=== PATIENT | male | born 1955 | race Caucasian/White ===

== ENCOUNTER 2018-08-08 16:27 | Inpatient (IN) ==
[2018-08-08] MEDS ORDERED: ONDANSETRON 4 MG/2 ML VIAL IV STA (17:12)
[2018-08-08] MEDS ORDERED: SODIUM CHLORIDE 0.9% 1,000 ML IV STA (17:12)
[2018-08-08] MEDS ORDERED: MORPHINE 4 MG/1 ML VIAL IV STA (17:12)
[2018-08-08] MEDS ORDERED: DILTIAZEM 50 MG/10 ML VIAL IV STA (17:22)
[2018-08-08] MEDS ORDERED: DILTIAZEM 25 MG/5 ML VIAL IV ONE (17:36)
[2018-08-08 17:42] LABS: Basophils % 0.3 % (0.0-0.8); Eosinophils # 0.1 10*3/uL (0.0-0.87); Eosinophils % 2.7 % (0.00-10.9); Hematocrit 39.9 VOL% (42.0-52.0); Hemoglobin 13.4 GM/DL (14.0-18.0); Immature Granulocytes % 0.3 %; Immature Granulocytes Absolute 0.01 #; Lymphocytes # 0.5 10*3/uL (1.4-4.0); Mean Corpuscular HGB Conc 33.6 GM/DL (32-36); Mean Corpuscular Hemoglobin 33 PG (27-34); Mean Corpuscular Volume 98.3 FL (87-102); Mean Platelet Volume 10.8 FL (9.6-12.0); Monocytes # 0.1 10*3/uL (0.11-0.8); Monocytes % 2.4 % (1.7-12.7); Neutrophils % 81.3 % (38.7-73.9); Platelet Count 223 T/CUMM (130-400); Red Blood Count 4.06 MC/CUMM (3.8-5.5); Red Cell Distribution Width 12.1 % (9.3-17.3); White Blood Count 3.7 T/CUMM (4-12)
[2018-08-08 18:02] LABS: Albumin 3.4 G/DL (3.4-5.0); Bilirubin,Total 0.9 MG/DL (0.2-1.0); Calcium 9.3 MG/DL (8.5-10.1); Osmolality,Calculated 271.4 MOS/KG (273-304); Total Protein 7.9 G/DL (6.4-8.3)
[2018-08-08 19:13] LABS: Apearance,Urine CLEAR (Clear); Bacteria,Urine Moderate /HPF (Few); Bilirubin,Urine Negative (Negative); Blood, Urine Negative (Negative); Glucose,Urine (UA) Negative (Negative); Ketones,Urine Negative (Negative); Nitrite,Urine Positive (Negative); Protein,Urine Negative; RBC,Urine 3 /HPF (0-4); Urine Color Yellow (Yellow); Urine Specific Gravity 1.051 (1.001-1.035); WBC,Urine 3 /HPF (0-6)
[2018-08-08] MEDS ORDERED: ACETAMINOPHEN 325 MG TABLET PO PRN (19:29)
[2018-08-08] MEDS ORDERED: ONDANSETRON 4 MG/2 ML VIAL IV PRN (19:29)
[2018-08-08] MEDS ORDERED: SENNA 8.6 MG TABLET PO PRN (19:43)
[2018-08-08] MEDS ORDERED: MORPHINE 4 MG/1 ML VIAL IV PRN (19:44)
[2018-08-08] MEDS: DILTIAZEM 60 MG TABLET PO SCH (22:00)
[2018-08-08] MEDS: APIXABAN 5 MG TABLET PO SCH (22:01)
[2018-08-08] MEDS: TAMSULOSIN 0.4 MG CAPSULE PO SCH (22:01)
[2018-08-08 22:32] LABS: Troponin I < 0.015 NG/ML (0.00-0.045)
[2018-08-08] MEDS: SODIUM CHLORIDE 0.45% 1,000 ML IV SCH (22:39)
[2018-08-08] MEDS: ACETYLCYSTEINE 600 MG CAPSULE PO SCH (22:42)
[2018-08-09] MEDS: POTASSIUM CHLORIDE 20 MEQ TABLET PO PRN ×6 (00:06→23:59)
[2018-08-09 05:51] LABS: Basophils % 0.5 % (0.0-0.8); Eosinophils # 0.1 10*3/uL (0.0-0.87); Eosinophils % 2.2 % (0.00-10.9); Hematocrit 34.3 VOL% (42.0-52.0); Hemoglobin 11.2 GM/DL (14.0-18.0); Immature Granulocytes % 0.3 %; Immature Granulocytes Absolute 0.01 #; Lymphocytes # 0.5 10*3/uL (1.4-4.0); Lymphocytes % 13.9 % (21.2-54.2); Mean Corpuscular HGB Conc 32.7 GM/DL (32-36); Mean Corpuscular Hemoglobin 33 PG (27-34); Mean Platelet Volume 11.3 FL (9.6-12.0); Monocytes # 0.1 10*3/uL (0.11-0.8); Monocytes % 1.9 % (1.7-12.7); Neutrophils % 81.2 % (38.7-73.9); Platelet Count 179 T/CUMM (130-400); Red Blood Count 3.43 MC/CUMM (3.8-5.5); Red Cell Distribution Width 12.3 % (9.3-17.3); White Blood Count 3.7 T/CUMM (4-12)
[2018-08-09 06:22] LABS: Albumin 2.7 G/DL (3.4-5.0); Bilirubin,Total 1.2 MG/DL (0.2-1.0); Calcium 8.7 MG/DL (8.5-10.1); Osmolality,Calculated 269.2 MOS/KG (273-304); Potassium 3.4 MMOL/L (3.5-5.1); Thyroid Stimulating Hormone 1.34 uIU/ml (0.358-3.74); Total Protein 7.6 G/DL (6.4-8.3)
[2018-08-09 06:29] LABS: Troponin I < 0.015 NG/ML (0.00-0.045)
[2018-08-09] MEDS: DILTIAZEM 60 MG TABLET PO SCH ×4 (08:40→20:42)
[2018-08-09] MEDS: APIXABAN 5 MG TABLET PO SCH (08:41)
[2018-08-09] MEDS: TAMSULOSIN 0.4 MG CAPSULE PO SCH ×2 (08:41→20:42)
[2018-08-09] MEDS: predniSONE 5 MG TABLET PO SCH (08:41)
[2018-08-09] MEDS: ACETYLCYSTEINE 600 MG CAPSULE PO SCH ×2 (08:41→20:42)
[2018-08-09] MEDS: SODIUM CHLORIDE 0.45% 1,000 ML IV SCH (08:44)
[2018-08-09 08:57] LABS: Troponin I < 0.015 NG/ML (0.00-0.045)
[2018-08-09] MEDS: ENOXAPARIN 40 MG/0.4 ML SYRINGE SUBCUT SCH (11:48)
[2018-08-09] MEDS: ASPIRIN EC 81 MG TABLET PO SCH (11:49)
[2018-08-09] MEDS: METOPROLOL TARTRATE 25 MG TABLET PO SCH ×2 (15:10→20:42)
[2018-08-10 08:49] VITALS: BP 114/67
[2018-08-10] MEDS: predniSONE 5 MG TABLET PO SCH (09:02)
[2018-08-10] MEDS: DILTIAZEM 60 MG TABLET PO SCH (09:02)
[2018-08-10] MEDS: TAMSULOSIN 0.4 MG CAPSULE PO SCH (09:02)
[2018-08-10] MEDS: METOPROLOL TARTRATE 25 MG TABLET PO SCH (09:02)
[2018-08-10] MEDS: ASPIRIN EC 81 MG TABLET PO SCH (09:03)
[2018-08-10] MEDS: ENOXAPARIN 40 MG/0.4 ML SYRINGE SUBCUT SCH (10:56)
== END 2018-08-10 11:48 | disposition home or self-care (01) | DRG 201 ==
LOC: N.ED 16:27 → N.EDINP 19:23 → INTOOBSV 19:23 → N.TELEN 20:24
PROVIDERS: ADMIT Emergency Medicine; ATTEND Emergency Medicine

== ENCOUNTER 2020-03-04 23:09 | Observation (INO) ==
[2020-03-04] MEDS ORDERED: IBUPROFEN 200 MG TABLET PO STA (23:26)
[2020-03-04] MEDS ORDERED: ASPIRIN 325 MG TABLET PO STA (23:41)
[2020-03-05 00:01] LABS: Basophils % 0.4 % (0.0-0.8); Eosinophils % 0.2 % (0.00-10.9); Hematocrit 35.5 VOL% (42.0-52.0); Hemoglobin 11.1 GM/DL (14.0-18.0); Immature Granulocytes % 0.5 %; Immature Granulocytes Absolute 0.03 #; Lymphocytes # 0.6 10*3/uL (1.4-4.0); Lymphocytes % 10.2 % (21.2-54.2); Mean Corpuscular HGB Conc 31.3 GM/DL (32-36); Mean Corpuscular Volume 104.1 FL (87-102); Monocytes % 1.4 % (1.7-12.7); Neutrophils % 87.3 % (38.7-73.9); Platelet Count 209 T/CUMM (130-400); Red Blood Count 3.41 MC/CUMM (3.8-5.5); Red Cell Distribution Width 13.5 % (9.3-17.3); White Blood Count 5.7 T/CUMM (4-12)
[2020-03-05 00:30] LABS: Bilirubin,Total 0.9 MG/DL (0.2-1.0); Calcium 8.2 MG/DL (8.5-10.1); Osmolality,Calculated 279.8 MOS/KG (273-304); Total Protein 7.6 G/DL (6.4-8.3)
[2020-03-05] MEDS ORDERED: GLUCAGON 1 MG VIAL IM PRN (04:12)
[2020-03-05] MEDS ORDERED: DEXTROSE 50% 25 GM/50 ML VIAL IV PRN (04:12)
[2020-03-05] MEDS ORDERED: ONDANSETRON 4 MG/2 ML VIAL IV PRN (04:42)
[2020-03-05] MEDS ORDERED: ACETAMINOPHEN 325 MG TABLET PO PRN (04:42)
[2020-03-05] MEDS: ENOXAPARIN 40 MG/0.4 ML SYRINGE SUBCUT SCH (06:38)
[2020-03-05] MEDS: cefTRIAXone 1,000 MG in SODIUM CHLORIDE 0.9% 100 ML IV SCH (06:38)
[2020-03-05 07:14] LABS: Hematocrit 32.7 VOL% (42.0-52.0); Hemoglobin 10.3 GM/DL (14.0-18.0); Immature Granulocytes % 0.5 %; Immature Granulocytes Absolute 0.02 #; Lymphocytes # 0.6 10*3/uL (1.4-4.0); Mean Corpuscular HGB Conc 31.5 GM/DL (32-36); Mean Corpuscular Volume 103.5 FL (87-102); Monocytes % 1.7 % (1.7-12.7); Neutrophils % 84.8 % (38.7-73.9); Platelet Count 177 T/CUMM (130-400); Red Blood Count 3.16 MC/CUMM (3.8-5.5); Red Cell Distribution Width 13.5 % (9.3-17.3); White Blood Count 4.2 T/CUMM (4-12)
[2020-03-05] MEDS: ALBUTEROL/IPRATROPIUM 3 ML NEB RESP TX SCH ×3 (07:15→19:16)
[2020-03-05 07:24] LABS: Albumin 2.8 G/DL (3.4-5.0); Bilirubin,Total 0.9 MG/DL (0.2-1.0); Osmolality,Calculated 280.5 MOS/KG (273-304); Total Protein 7.1 G/DL (6.4-8.3)
[2020-03-05] MEDS: INSULIN REGULAR 100 UNIT/ML SUBCUT SCH ×4 (07:40→21:01)
[2020-03-05] MEDS: PANTOPRAZOLE 40 MG TABLET PO SCH (10:06)
[2020-03-05] MEDS: predniSONE 10 MG TABLET PO SCH (18:46)
[2020-03-05] MEDS ORDERED: SIMVASTATIN 20 MG TABLET PO SCH (21:00)
[2020-03-06] MEDS: LEVALBUTEROL 1.25 MG/3 ML NEB RESP TX SCH ×2 (01:12→07:29)
[2020-03-06] MEDS: ENOXAPARIN 40 MG/0.4 ML SYRINGE SUBCUT SCH (05:49)
[2020-03-06] MEDS: cefTRIAXone 1,000 MG in SODIUM CHLORIDE 0.9% 100 ML IV SCH (05:49)
[2020-03-06] MEDS ORDERED: Abiraterone [Zytiga] 1,000 MG PO SCH (06:00)
[2020-03-06 06:04] LABS: Basophils % 0.3 % (0.0-0.8); Eosinophils % 0.7 % (0.00-10.9); Hemoglobin 10.3 GM/DL (14.0-18.0); Immature Granulocytes % 0.3 %; Immature Granulocytes Absolute 0.01 #; Lymphocytes # 0.4 10*3/uL (1.4-4.0); Lymphocytes % 14.7 % (21.2-54.2); Mean Corpuscular HGB Conc 31.2 GM/DL (32-36); Mean Corpuscular Volume 102.8 FL (87-102); Mean Platelet Volume 11.4 FL (9.6-12.0); Monocytes % 1.7 % (1.7-12.7); Neutrophils % 82.3 % (38.7-73.9); Platelet Count 153 T/CUMM (130-400); Red Blood Count 3.21 MC/CUMM (3.8-5.5); Red Cell Distribution Width 13.4 % (9.3-17.3); White Blood Count 2.9 T/CUMM (4-12)
[2020-03-06 06:20] LABS: Calcium 7.9 MG/DL (8.5-10.1); Osmolality,Calculated 278.8 MOS/KG (273-304)
[2020-03-06] MEDS ORDERED: LISINOPRIL/HCTZ 20-12.5 MG TABLET PO SCH (09:00)
[2020-03-06] MEDS: predniSONE 10 MG TABLET PO SCH (09:36)
[2020-03-06] MEDS: PANTOPRAZOLE 40 MG TABLET PO SCH (09:36)
[2020-03-06] MEDS: INSULIN REGULAR 100 UNIT/ML SUBCUT SCH ×2 (09:37→11:28)
[2020-03-06 12:05] VITALS: BP 118/87
== END 2020-03-06 11:49 | disposition home or self-care (01) ==
LOC: N.EDINP 23:09 → N.ED 23:09 → N.EDINP 03-05 05:50 → N.TELEN 03-05 06:07
PROVIDERS: ADMIT Internal Medicine; ATTEND Internal Medicine

== ENCOUNTER 2020-07-06 11:13 | Inpatient (IN) ==
[2020-07-06 12:03] LABS: Basophils % 0.3 % (0.0-0.8); Eosinophils % 0.1 % (0.00-10.9); Hematocrit 24.6 VOL% (42.0-52.0); Hemoglobin 7.1 GM/DL (14.0-18.0); Immature Granulocytes % 6.4 %; Immature Granulocytes Absolute 0.58 #; Lymphocytes # 0.6 10*3/uL (1.4-4.0); Lymphocytes % 6.3 % (21.2-54.2); Mean Corpuscular HGB Conc 28.9 GM/DL (32-36); Mean Corpuscular Volume 98.8 FL (87-102); Mean Platelet Volume 10.3 FL (9.6-12.0); Monocytes % 8.3 % (1.7-12.7); NRBC # 0.08 10*3/uL; Neutrophils % 78.6 % (38.7-73.9); Platelet Count 171 T/CUMM (130-400); Red Blood Count 2.49 MC/CUMM (3.8-5.5); Red Cell Distribution Width 23.6 % (9.3-17.3)
[2020-07-06 12:23] LABS: INR 1.3; PT Patient Result 13.8 SECS (9.8-11.9); Partial Thromboplastin Time 34.2 SECS (23.9-33.8)
[2020-07-06 12:26] LABS: Anisocytosis 3+; Band Neutrophils 15 % (0-10); Lymphocytes 4 % (20-55); Macrocytosis 1+; Platelet Estimate Normal; Segmented Neutrophils 76 % (50-85); Total Cells Counted 100
[2020-07-06 12:27] LABS: Giant Platelets Few; Ovalocytes Few; Tear Drop Cells Few
[2020-07-06 12:33] LABS: Albumin 2.4 G/DL (3.4-5.0); Bilirubin,Total 1.4 MG/DL (0.2-1.0); Calcium 8.4 MG/DL (8.5-10.1); Osmolality,Calculated 274.8 MOS/KG (273-304); Thyroid Stimulating Hormone 1.11 uIU/ml (0.358-3.74)
[2020-07-06 12:34] LABS: Bilirubin,Urine Negative (Negative); Blood, Urine Negative (Negative); Glucose,Urine (UA) Negative (Negative); Hyaline Casts,Urine 9 /LPF (0-3); Ketones,Urine Negative (Negative); Mucus,Urine Many /LPF (Occasional); Nitrite,Urine Negative (Negative); Protein,Urine 100 MG/DL; RBC,Urine 3 /HPF (0-4); Squamous Epithelial Cell,Urine Occasional /HPF (0-10); Urine Appearance CLEAR (Clear); Urine Color Amber (Yellow); Urine Specific Gravity 1.024 (1.001-1.035); WBC,Urine 13 /HPF (0-6)
[2020-07-06 12:35] LABS: Barbiturates Screen,Urine Negative (Negative); Benzodiazepines Screen,Urine Negative (Negative); Cannabinoid Screen,Urine Negative (Negative); Opiate Screen,Urine Positive (Negative); Phencyclidine Screen,Urine Negative (Negative)
[2020-07-06] MEDS ORDERED: cefTRIAXone 1,000 MG in SODIUM CHLORIDE 0.9% 100 ML IV STA (13:03)
[2020-07-06] MEDS ORDERED: DILTIAZEM 50 MG/10 ML VIAL IV STA (13:03)
[2020-07-06] MEDS ORDERED: dilTIAZem Drip 125 MG/125 ML PREMIX IV SCH (13:30)
[2020-07-06] MEDS ORDERED: ACETAMINOPHEN 325 MG TABLET PO PRN (14:25)
[2020-07-06] MEDS ORDERED: ONDANSETRON 4 MG/2 ML VIAL IV PRN (14:25)
[2020-07-06] MEDS ORDERED: DOCUSATE SODIUM 100 MG CAPSULE PO PRN (14:25)
[2020-07-06] MEDS ORDERED: guaiFENesin/DM ER 600-30 MG TABLET PO PRN (14:25)
[2020-07-06] MEDS ORDERED: DEXTROSE 50% 25 GM/50 ML VIAL IV PRN ×2 (14:25→14:43)
[2020-07-06] MEDS ORDERED: MORPHINE 4 MG/1 ML VIAL IV PRN (14:25)
[2020-07-06] MEDS ORDERED: hydrALAZINE 20 MG/1 ML VIAL IV PRN (14:25)
[2020-07-06] MEDS ORDERED: NICOTINE 21 MG/24 HR PATCH TRANSDERM PRN (14:25)
[2020-07-06] MEDS ORDERED: LACTULOSE 20 GM/30 ML UDCUP PO PRN (14:25)
[2020-07-06] MEDS ORDERED: GLUCAGON 1 MG VIAL IM PRN ×2 (14:25→14:43)
[2020-07-06 17:19] LABS: Folate 8.7 NG/ML (5.4-24.0)
[2020-07-06 17:30] LABS: % Iron Saturation 12.6 % (18-50); Ferritin 3062.4 ng/ml (26-388)
[2020-07-06 17:32] LABS: Hematocrit 27.5 VOL% (42.0-52.0); Hemoglobin 7.5 GM/DL (14.0-18.0)
[2020-07-06] MEDS: INSULIN LISPRO 100 UNIT/ML SUBCUT SCH ×2 (17:33→20:50)
[2020-07-06] MEDS: DILTIAZEM 30 MG TABLET PO SCH ×2 (17:42→20:49)
[2020-07-06] MEDS: ENOXAPARIN 120 MG/0.8 ML SYRINGE SUBCUT SCH (17:42)
[2020-07-06 23:40] LABS: Hematocrit 23.7 VOL% (42.0-52.0); Hemoglobin 6.8 GM/DL (14.0-18.0)
[2020-07-07 05:29] LABS: Basophils % 0.2 % (0.0-0.8); Hematocrit 21.7 VOL% (42.0-52.0); Immature Granulocytes % 5.3 %; Immature Granulocytes Absolute 0.44 #; Lymphocytes # 0.6 10*3/uL (1.4-4.0); Lymphocytes % 6.8 % (21.2-54.2); Mean Corpuscular HGB Conc 28.6 GM/DL (32-36); Mean Corpuscular Volume 99.1 FL (87-102); Mean Platelet Volume 11.8 FL (9.6-12.0); Monocytes % 7.8 % (1.7-12.7); NRBC # 0.09 10*3/uL; Neutrophils % 79.9 % (38.7-73.9); Platelet Count 192 T/CUMM (130-400); Red Blood Count 2.19 MC/CUMM (3.8-5.5); Red Cell Distribution Width 23.8 % (9.3-17.3); White Blood Count 8.4 T/CUMM (4-12)
[2020-07-07 05:35] LABS: Hemoglobin 6.2 GM/DL (14.0-18.0)
[2020-07-07 05:50] LABS: Eosinophils 2 % (0-10); Hypochromasia 2+; Lymphocytes 6 % (20-55); Microcytosis 1+; Myelocytes 1 %; Nucleated Red Blood Cells 1 (0-5); Ovalocytes Slight; Platelet Estimate Adequate; Segmented Neutrophils 83 % (50-85); Total Cells Counted 100
[2020-07-07 06:06] LABS: Albumin 2.4 G/DL (3.4-5.0); Bilirubin,Total 1.6 MG/DL (0.2-1.0); Calcium 8.6 MG/DL (8.5-10.1); Risk Ratio 9.08; Thyroid Stimulating Hormone 0.755 uIU/ml (0.358-3.74); Total Protein 6.7 G/DL (6.4-8.3); VLDL CHOLESTEROL 30.6 MG/DL
[2020-07-07] MEDS ORDERED: SODIUM CHLORIDE 0.9% 1,000 ML IV PRN (06:11)
[2020-07-07] MEDS: INSULIN LISPRO 100 UNIT/ML SUBCUT SCH ×4 (08:48→20:12)
[2020-07-07 08:59] LABS: Hematocrit 20.6 VOL% (42.0-52.0)
[2020-07-07] MEDS: PANTOPRAZOLE 40 MG TABLET PO SCH (09:16)
[2020-07-07] MEDS: DILTIAZEM 30 MG TABLET PO SCH ×4 (09:19→20:11)
[2020-07-07] MEDS ORDERED: FUROSEMIDE 40 MG/4 ML VIAL IV ONE (10:24)
[2020-07-07] MEDS ORDERED: cefTRIAXone 1,000 MG in SYRINGE 1 EACH IV SCH (15:00)
[2020-07-07] MEDS: ENOXAPARIN 120 MG/0.8 ML SYRINGE SUBCUT SCH (16:53)
[2020-07-07 19:36] LABS: Hematocrit 29.3 VOL% (42.0-52.0)
[2020-07-08 05:43] LABS: Basophils % 0.3 % (0.0-0.8); Eosinophils % 0.1 % (0.00-10.9); Hematocrit 28.2 VOL% (42.0-52.0); Hemoglobin 8.6 GM/DL (14.0-18.0); Immature Granulocytes % 7.3 %; Immature Granulocytes Absolute 0.65 #; Lymphocytes # 0.7 10*3/uL (1.4-4.0); Lymphocytes % 7.4 % (21.2-54.2); Mean Corpuscular HGB Conc 30.5 GM/DL (32-36); Mean Platelet Volume 11.5 FL (9.6-12.0); Monocytes % 7.2 % (1.7-12.7); NRBC # 0.13 10*3/uL; Neutrophils % 77.7 % (38.7-73.9); Platelet Count 171 T/CUMM (130-400); Red Cell Distribution Width 21.5 % (9.3-17.3)
[2020-07-08 06:17] LABS: Albumin 2.4 G/DL (3.4-5.0); Bilirubin,Total 1.8 MG/DL (0.2-1.0); Calcium 8.5 MG/DL (8.5-10.1); Osmolality,Calculated 273.8 MOS/KG (273-304); Total Protein 6.9 G/DL (6.4-8.3)
[2020-07-08 09:16] LABS: Band Neutrophils 4 % (0-10); Hypochromasia 2+; Lymphocytes 7 % (20-55); Metamyelocytes 1 %; Microcytosis 1+; Myelocytes 1 %; Nucleated Red Blood Cells 1 (0-5); Ovalocytes Few; Segmented Neutrophils 80 % (50-85); Tear Drop Cells Slight; Total Cells Counted 100
[2020-07-08 09:17] LABS: Platelet Estimate Adequate; Polychromasia Slight
[2020-07-08] MEDS: INSULIN LISPRO 100 UNIT/ML SUBCUT SCH ×4 (09:46→21:27)
[2020-07-08] MEDS: PANTOPRAZOLE 40 MG TABLET PO SCH (09:46)
[2020-07-08] MEDS: DILTIAZEM 60 MG TABLET PO SCH ×2 (09:47→12:43)
[2020-07-08] MEDS ORDERED: VANCOMYCIN INJ 2,250 MG in SODIUM CHLORIDE 0.9% 500 ML IV ONE (10:00)
[2020-07-08] MEDS: AMPICILLIN INJ 1,000 MG in SODIUM CHLORIDE 0.9% 100 ML IV SCH ×3 (11:05→21:50)
[2020-07-08] MEDS: ENOXAPARIN 120 MG/0.8 ML SYRINGE SUBCUT SCH (17:17)
[2020-07-08] MEDS: SOTALOL 80 MG TABLET PO SCH ×2 (17:17→20:37)
[2020-07-08] MEDS ORDERED: VANCOMYCIN INJ 1,500 MG in SODIUM CHLORIDE 0.9% 500 ML IV SCH (21:00)
[2020-07-09] MEDS: AMPICILLIN INJ 1,000 MG in SODIUM CHLORIDE 0.9% 100 ML IV SCH ×3 (04:05→17:32)
[2020-07-09 06:23] LABS: Basophils % 0.3 % (0.0-0.8); Eosinophils % 0.1 % (0.00-10.9); Hematocrit 27.8 VOL% (42.0-52.0); Hemoglobin 8.3 GM/DL (14.0-18.0); Immature Granulocytes % 4.8 %; Immature Granulocytes Absolute 0.42 #; Lymphocytes # 0.5 10*3/uL (1.4-4.0); Lymphocytes % 5.9 % (21.2-54.2); Mean Corpuscular HGB Conc 29.9 GM/DL (32-36); Mean Corpuscular Volume 96.5 FL (87-102); Mean Platelet Volume 10.6 FL (9.6-12.0); Monocytes % 9.7 % (1.7-12.7); NRBC # 0.09 10*3/uL; Neutrophils % 79.2 % (38.7-73.9); Platelet Count 146 T/CUMM (130-400); Red Blood Count 2.88 MC/CUMM (3.8-5.5); Red Cell Distribution Width 21.5 % (9.3-17.3); White Blood Count 8.7 T/CUMM (4-12)
[2020-07-09 06:44] LABS: Albumin 2.3 G/DL (3.4-5.0); Bilirubin,Total 2.6 MG/DL (0.2-1.0); Calcium 8.1 MG/DL (8.5-10.1); Osmolality,Calculated 275.8 MOS/KG (273-304); Total Protein 6.4 G/DL (6.4-8.3)
[2020-07-09] MEDS: INSULIN LISPRO 100 UNIT/ML SUBCUT SCH ×4 (08:38→17:32)
[2020-07-09] MEDS: SOTALOL 80 MG TABLET PO SCH (09:53)
[2020-07-09] MEDS: PANTOPRAZOLE 40 MG TABLET PO SCH (09:53)
[2020-07-09 16:34] VITALS: BP 120/60
== END 2020-07-09 17:22 | disposition home or self-care (01) | DRG 201 ==
LOC: N.ED 11:13 → N.EDINP 14:25 → SUATTDRO 14:25 → N.TELEN 16:50
PROVIDERS: ADMIT Family Medicine; ATTEND Phlebology

== ENCOUNTER 2020-07-18 14:18 | Observation (INO) ==
[2020-07-18 15:10] LABS: Basophils % 0.1 % (0.0-0.8); Eosinophils % 0.4 % (0.00-10.9); Hematocrit 22.6 VOL% (42.0-52.0); Hemoglobin 6.9 GM/DL (14.0-18.0); Immature Granulocytes % 9.5 %; Immature Granulocytes Absolute 0.72 #; Lymphocytes # 0.4 10*3/uL (1.4-4.0); Lymphocytes % 5.8 % (21.2-54.2); Mean Corpuscular HGB Conc 30.5 GM/DL (32-36); Mean Corpuscular Volume 95.4 FL (87-102); Mean Platelet Volume 11.2 FL (9.6-12.0); Monocytes # 0.4 10*3/uL (0.11-0.8); Monocytes % 5.1 % (1.7-12.7); NRBC # 0.11 10*3/uL; Neutrophils % 79.1 % (38.7-73.9); Platelet Count 141 T/CUMM (130-400); Red Blood Count 2.37 MC/CUMM (3.8-5.5); Red Cell Distribution Width 22.2 % (9.3-17.3); White Blood Count 7.6 T/CUMM (4-12)
[2020-07-18 15:28] LABS: Bilirubin,Total 1.6 MG/DL (0.2-1.0); Calcium 8.4 MG/DL (8.5-10.1); Osmolality,Calculated 285.5 MOS/KG (273-304); Potassium 3.6 MMOL/L (3.5-5.1); Total Protein 6.2 G/DL (6.4-8.3)
[2020-07-18 16:35] LABS: Band Neutrophils 10 % (0-10); Eosinophils 1 % (0-10); Lymphocytes 7 % (20-55); Metamyelocytes 3 %; Total Cells Counted 100
[2020-07-18 16:36] LABS: Hypochromia Slight; Platelet Estimate Adequate
[2020-07-18] MEDS ORDERED: DEXTROSE 50% 25 GM/50 ML VIAL IV PRN (17:54)
[2020-07-18] MEDS ORDERED: PROMETHAZINE 25 MG/1 ML VIAL IM PRN (17:54)
[2020-07-18] MEDS ORDERED: ALBUTEROL/IPRATROPIUM 3 ML NEB RESP TX PRN (17:54)
[2020-07-18] MEDS ORDERED: DOCUSATE SODIUM 100 MG CAPSULE PO PRN (17:54)
[2020-07-18] MEDS ORDERED: LACTULOSE 20 GM/30 ML UDCUP PO PRN (17:54)
[2020-07-18] MEDS ORDERED: ONDANSETRON 4 MG/2 ML VIAL IV PRN (17:54)
[2020-07-18] MEDS ORDERED: MORPHINE 4 MG/1 ML VIAL IV PRN (17:54)
[2020-07-18] MEDS ORDERED: GLUCAGON 1 MG VIAL IM PRN (17:54)
[2020-07-18] MEDS ORDERED: diphenhydrAMINE 50 MG/1 ML VIAL IV PRN (18:14)
[2020-07-18] MEDS ORDERED: FUROSEMIDE 20 MG/2 ML VIAL IV PRN (18:14)
[2020-07-18] MEDS ORDERED: SODIUM CHLORIDE 0.9% 1,000 ML IV PRN (18:14)
[2020-07-18] MEDS: SIMVASTATIN 20 MG TABLET PO SCH (21:23)
[2020-07-18] MEDS: SOTALOL 80 MG TABLET PO SCH (21:23)
[2020-07-18] MEDS: INSULIN LISPRO 100 UNIT/ML SUBCUT SCH (21:24)
[2020-07-19] MEDS: SODIUM CHLORIDE 0.9% 1,000 ML IV SCH ×2 (06:24→20:14)
[2020-07-19] MEDS: INSULIN LISPRO 100 UNIT/ML SUBCUT SCH ×4 (07:43→20:15)
[2020-07-19] MEDS ORDERED: LISINOPRIL/HCTZ 20-12.5 MG TABLET PO SCH (09:00)
[2020-07-19] MEDS: SOTALOL 80 MG TABLET PO SCH ×2 (09:18→20:13)
[2020-07-19 09:35] LABS: Basophils % 0.2 % (0.0-0.8); Eosinophils % 0.3 % (0.00-10.9); Hematocrit 29.1 VOL% (42.0-52.0); Immature Granulocytes % 7.4 %; Immature Granulocytes Absolute 0.66 #; Lymphocytes # 0.4 10*3/uL (1.4-4.0); Lymphocytes % 4.6 % (21.2-54.2); Mean Corpuscular HGB Conc 31.3 GM/DL (32-36); Mean Corpuscular Volume 94.2 FL (87-102); Mean Platelet Volume 11.4 FL (9.6-12.0); Monocytes # 0.5 10*3/uL (0.11-0.8); Monocytes % 5.6 % (1.7-12.7); NRBC # 0.13 10*3/uL; Neutrophils % 81.9 % (38.7-73.9); Platelet Count 131 T/CUMM (130-400); Red Cell Distribution Width 20.9 % (9.3-17.3); White Blood Count 8.9 T/CUMM (4-12)
[2020-07-19 09:40] LABS: Red Blood Count 3.09 MC/CUMM (3.8-5.5)
[2020-07-19 09:41] LABS: Hemoglobin 9.1 GM/DL (14.0-18.0)
[2020-07-19 09:54] LABS: Band Neutrophils 4 % (0-10); Eosinophils 1 % (0-10); Hypochromia 1+; Lymphocytes 8 % (20-55); Microcytosis 1+; Ovalocytes Slight; Platelet Estimate Adequate; Total Cells Counted 100
[2020-07-19 09:57] LABS: Albumin 2.1 G/DL (3.4-5.0); Bilirubin,Total 1.9 MG/DL (0.2-1.0); Calcium 8.6 MG/DL (8.5-10.1); Osmolality,Calculated 284.1 MOS/KG (273-304); Potassium 3.8 MMOL/L (3.5-5.1); Risk Ratio 7.92; Thyroid Stimulating Hormone 1.25 uIU/ml (0.358-3.74); Total Protein 6.5 G/DL (6.4-8.3); VLDL Cholesterol 26.6 MG/DL
[2020-07-19 10:02] LABS: % Iron Saturation 34.6 % (18-50); Ferritin 7860.2 ng/ml (26-388)
[2020-07-19 10:11] LABS: Folate 7.1 NG/ML (5.4-24.0)
[2020-07-19] MEDS ORDERED: BISACODYL 10 MG SUPP RECTAL PRN (15:19)
[2020-07-19] MEDS: SIMVASTATIN 20 MG TABLET PO SCH (20:13)
[2020-07-20] MEDS: SODIUM CHLORIDE 0.9% 1,000 ML IV SCH ×2 (06:22→16:35)
[2020-07-20 06:30] LABS: Basophils % 0.1 % (0.0-0.8); Eosinophils % 0.1 % (0.00-10.9); Hemoglobin 8.4 GM/DL (14.0-18.0); Immature Granulocytes % 6.7 %; Immature Granulocytes Absolute 0.54 #; Lymphocytes # 0.4 10*3/uL (1.4-4.0); Lymphocytes % 5.2 % (21.2-54.2); Mean Corpuscular HGB Conc 31.1 GM/DL (32-36); Mean Corpuscular Volume 94.1 FL (87-102); Mean Platelet Volume 11.1 FL (9.6-12.0); Monocytes # 0.5 10*3/uL (0.11-0.8); Monocytes % 5.7 % (1.7-12.7); NRBC # 0.07 10*3/uL; Neutrophils % 82.2 % (38.7-73.9); Platelet Count 106 T/CUMM (130-400); Red Blood Count 2.87 MC/CUMM (3.8-5.5); Red Cell Distribution Width 20.8 % (9.3-17.3)
[2020-07-20 07:02] LABS: Bilirubin,Total 2.4 MG/DL (0.2-1.0); Calcium 8.2 MG/DL (8.5-10.1); Osmolality,Calculated 277.5 MOS/KG (273-304); Potassium 3.6 MMOL/L (3.5-5.1); Total Protein 6.2 G/DL (6.4-8.3)
[2020-07-20 07:12] LABS: Band Neutrophils 2 % (0-10); Lymphocytes 10 % (20-55); Metamyelocytes 1 %; Myelocytes 1 %; Total Cells Counted 100
[2020-07-20 07:13] LABS: Hypochromia 1+; Microcytosis 1+; Ovalocytes Slight
[2020-07-20 07:14] LABS: Platelet Estimate Adequate
[2020-07-20] MEDS: INSULIN LISPRO 100 UNIT/ML SUBCUT SCH ×4 (08:18→22:17)
[2020-07-20] MEDS: SOTALOL 80 MG TABLET PO SCH ×2 (08:19→22:34)
[2020-07-20] MEDS ORDERED: LORazepam 2 MG/1 ML VIAL IV PRN (08:46)
[2020-07-20] MEDS: LACTULOSE 20 GM/30 ML UDCUP PO SCH (17:24)
[2020-07-20] MEDS: SIMVASTATIN 20 MG TABLET PO SCH (22:34)
[2020-07-21] MEDS: ACETAMINOPHEN 325 MG TABLET PO PRN (00:35)
[2020-07-21] MEDS: LACTULOSE 20 GM/30 ML UDCUP PO SCH ×4 (00:36→17:11)
[2020-07-21 05:22] LABS: Basophils % 0.2 % (0.0-0.8); Eosinophils % 0.1 % (0.00-10.9); Hematocrit 27.2 VOL% (42.0-52.0); Hemoglobin 8.2 GM/DL (14.0-18.0); Immature Granulocytes % 7.2 %; Immature Granulocytes Absolute 0.58 #; Lymphocytes # 0.4 10*3/uL (1.4-4.0); Lymphocytes % 5.1 % (21.2-54.2); Mean Corpuscular HGB Conc 30.1 GM/DL (32-36); Mean Corpuscular Volume 95.4 FL (87-102); Mean Platelet Volume 10.6 FL (9.6-12.0); Monocytes # 0.5 10*3/uL (0.11-0.8); Monocytes % 6.7 % (1.7-12.7); NRBC # 0.04 10*3/uL; Neutrophils % 80.7 % (38.7-73.9); Platelet Count 100 T/CUMM (130-400); Red Blood Count 2.85 MC/CUMM (3.8-5.5); Red Cell Distribution Width 20.8 % (9.3-17.3)
[2020-07-21 05:47] LABS: Albumin 1.9 G/DL (3.4-5.0); Bilirubin,Total 1.9 MG/DL (0.2-1.0); Calcium 8.3 MG/DL (8.5-10.1); Osmolality,Calculated 282.3 MOS/KG (273-304); Potassium 3.5 MMOL/L (3.5-5.1); Total Protein 6.2 G/DL (6.4-8.3)
[2020-07-21 05:56] LABS: Eosinophils 1 % (0-10); Hypochromia 1+; Lymphocytes 7 % (20-55); Microcytosis 1+; Nucleated Red Blood Cells 1 (0-5); Platelet Estimate Decreased; Total Cells Counted 100
[2020-07-21] MEDS: SODIUM CHLORIDE 0.9% 1,000 ML IV SCH (06:00)
[2020-07-21] MEDS ORDERED: DIAZEPAM 5 MG TABLET PO ONE (08:20)
[2020-07-21 09:01] LABS: INR 1.5; PT Patient Result 15.6 SECS (9.8-11.9)
[2020-07-21] MEDS: INSULIN LISPRO 100 UNIT/ML SUBCUT SCH ×4 (09:17→21:55)
[2020-07-21] MEDS: SOTALOL 80 MG TABLET PO SCH ×2 (09:27→21:40)
[2020-07-21] MEDS: SODIUM CHLORIDE 0.45% 1,000 ML IV SCH (09:27)
[2020-07-21] MEDS: SIMVASTATIN 20 MG TABLET PO SCH (21:41)
[2020-07-22] MEDS: ACETAMINOPHEN 325 MG TABLET PO PRN ×2 (00:18→15:56)
[2020-07-22] MEDS: LACTULOSE 20 GM/30 ML UDCUP PO SCH ×3 (00:19→13:00)
[2020-07-22] MEDS: INSULIN LISPRO 100 UNIT/ML SUBCUT SCH ×3 (07:42→15:56)
[2020-07-22] MEDS: SODIUM CHLORIDE 0.9% 1,000 ML IV SCH ×2 (08:31→10:14)
[2020-07-22] MEDS: SOTALOL 80 MG TABLET PO SCH (08:31)
[2020-07-22] MEDS: SODIUM CHLORIDE 0.45% 1,000 ML IV SCH (09:57)
[2020-07-22 15:25] VITALS: BP 137/77
== END 2020-07-22 17:20 | disposition home or self-care (01) ==
LOC: EDBD → EDUNIT# → N.ED 14:18 → N.EDINP 14:18 → N.5E 19:44
PROVIDERS: ADMIT Family Medicine; ATTEND Family Medicine

== ENCOUNTER 2020-10-06 19:42 | Observation (INO) ==
[2020-10-06] MEDS ORDERED: SODIUM CHLORIDE 0.9% 1,000 ML IV STA (21:03)
[2020-10-06 21:13] LABS: Eosinophils % 0.3 % (0.00-10.9); Immature Granulocytes % 5.1 %; Immature Granulocytes Absolute 0.34 #; Lymphocytes # 0.8 10*3/uL (1.4-4.0); Lymphocytes % 11.8 % (21.2-54.2); Mean Corpuscular HGB Conc 29.1 GM/DL (32-36); Mean Corpuscular Volume 102.9 FL (87-102); Monocytes % 7.3 % (1.7-12.7); NRBC # 0.25 10*3/uL; Neutrophils % 75.5 % (38.7-73.9); Platelet Count 69 T/CUMM (130-400); Red Cell Distribution Width 26.2 % (9.3-17.3); White Blood Count 6.7 T/CUMM (4-12)
[2020-10-06 21:16] LABS: Hematocrit 17.5 VOL% (42.0-52.0); Hemoglobin 5.1 GM/DL (14.0-18.0)
[2020-10-06 21:22] LABS: Osmolality,Calculated 288.3 MOS/KG (273-304); Potassium 3.2 MMOL/L (3.5-5.1)
[2020-10-06 21:43] LABS: Band Neutrophils 3 % (0-10); Lymphocytes 14 % (20-55); Nucleated Red Blood Cells 5 (0-5); Segmented Neutrophils 76 % (50-85); Total Cells Counted 100
[2020-10-06 21:44] LABS: Anisocytosis 1+; Elliptocytes Few; Hypochromasia 2+; Polychromasia 1+; Tear Drop Cells Few
[2020-10-06 21:45] LABS: Platelet Estimate Decreased
[2020-10-06] MEDS ORDERED: DEXTROSE 50% 25 GM/50 ML SYRINGE IV ONE ×2 (23:05→23:41)
[2020-10-06] MEDS ORDERED: DEXTROSE 50% 25 GM/50 ML SYRINGE IV STA (23:48)
[2020-10-06] MEDS ORDERED: DEXTROSE 50% 25 GM/50 ML VIAL IV STA (23:51)
[2020-10-06] MEDS: DEXTROSE 5% NACL 0.45% 1,000 ML IV SCH (23:52)
[2020-10-07] MEDS ORDERED: SODIUM CHLORIDE 0.9% 1,000 ML IV PRN (00:02)
[2020-10-07] MEDS ORDERED: MORPHINE 4 MG/1 ML VIAL IV PRN (00:42)
[2020-10-07] MEDS ORDERED: GLUCAGON 1 MG VIAL IM PRN ×3 (00:42→15:26)
[2020-10-07] MEDS ORDERED: guaiFENesin/DM ER 600-30 MG TABLET PO PRN (00:42)
[2020-10-07] MEDS ORDERED: NICOTINE 21 MG/24 HR PATCH TRANSDERM PRN (00:42)
[2020-10-07] MEDS ORDERED: ACETAMINOPHEN 325 MG TABLET PO PRN (00:42)
[2020-10-07] MEDS ORDERED: hydrALAZINE 20 MG/1 ML VIAL IV PRN (00:42)
[2020-10-07] MEDS ORDERED: BISACODYL 5 MG TABLET PO PRN (00:42)
[2020-10-07] MEDS ORDERED: ONDANSETRON 4 MG/2 ML VIAL IV PRN (00:42)
[2020-10-07] MEDS ORDERED: diphenhydrAMINE CAP 25 MG CAPSULE PO PRN (00:42)
[2020-10-07] MEDS ORDERED: DEXTROSE 50% 25 GM/50 ML VIAL IV PRN ×3 (00:42→15:26)
[2020-10-07 01:57] LABS: Folate 3.5 NG/ML (5.38-24.0); Vitamin B12 > 2000 PG/ML (211-911)
[2020-10-07 07:16] LABS: Bacteria,Urine Many /HPF (Few); Bilirubin,Urine Negative (Negative); Blood, Urine Negative (Negative); Glucose,Urine (UA) Negative (Negative); Ketones,Urine Negative (Negative); Nitrite,Urine Negative (Negative); Protein,Urine Negative; RBC,Urine 2 /HPF (0-4); Urine Appearance CLEAR (Clear); Urine Color Amber (Yellow); Urine Specific Gravity 1.012 (1.001-1.035); WBC,Urine 2 /HPF (0-6)
[2020-10-07 08:26] LABS: Basophils % 0.1 % (0.0-0.8); Eosinophils % 0.1 % (0.00-10.9); Hematocrit 25.4 VOL% (42.0-52.0); Immature Granulocytes % 7.1 %; Immature Granulocytes Absolute 0.52 #; Lymphocytes # 0.7 10*3/uL (1.4-4.0); Mean Corpuscular HGB Conc 30.3 GM/DL (32-36); Mean Platelet Volume 12.1 FL (9.6-12.0); Neutrophils % 76.7 % (38.7-73.9); Red Cell Distribution Width 21.9 % (9.3-17.3); White Blood Count 7.3 T/CUMM (4-12)
[2020-10-07 08:30] LABS: Hemoglobin 7.7 GM/DL (14.0-18.0); Red Blood Count 2.54 MC/CUMM (3.8-5.5)
[2020-10-07 08:31] LABS: Platelet Count 67 T/CUMM (130-400)
[2020-10-07 08:39] LABS: Calcium 7.9 MG/DL (8.5-10.1); Osmolality,Calculated 277.3 MOS/KG (273-304); Potassium 3.3 MMOL/L (3.5-5.1)
[2020-10-07 09:04] LABS: Anisocytosis 1+; Band Neutrophils 4 % (0-10); Hypochromasia 2+; Lymphocytes 7 % (20-55); Metamyelocytes 1 %; Myelocytes 2 %; Nucleated Red Blood Cells 1 (0-5); Segmented Neutrophils 78 % (50-85); Total Cells Counted 100
[2020-10-07 09:05] LABS: Microcytosis 1+
[2020-10-07 09:07] LABS: Ovalocytes Slight; Platelet Estimate Decreased; Polychromasia Slight; Tear Drop Cells Slight
[2020-10-07 09:08] LABS: Target Cells Slight
[2020-10-07] MEDS: PANTOPRAZOLE 40 MG TABLET PO SCH (09:48)
[2020-10-07] MEDS: INSULIN LISPRO 100 UNIT/ML SUBCUT SCH (15:29)
[2020-10-07] MEDS: DEXTROSE 5% NACL 0.45% 1,000 ML IV SCH (16:14)
[2020-10-08] MEDS: DEXTROSE 5% NACL 0.45% 1,000 ML IV SCH ×3 (04:04→17:23)
[2020-10-08 04:36] LABS: Basophils % 0.1 % (0.0-0.8); Eosinophils % 0.1 % (0.00-10.9); Hematocrit 25.2 VOL% (42.0-52.0); Hemoglobin 7.6 GM/DL (14.0-18.0); Immature Granulocytes % 6.3 %; Lymphocytes # 0.8 10*3/uL (1.4-4.0); Mean Corpuscular HGB Conc 30.2 GM/DL (32-36); Mean Corpuscular Volume 100.8 FL (87-102); Mean Platelet Volume 11.1 FL (9.6-12.0); Monocytes % 7.2 % (1.7-12.7); NRBC # 0.21 10*3/uL; Neutrophils % 76.3 % (38.7-73.9); Platelet Count 60 T/CUMM (130-400); Red Cell Distribution Width 22.5 % (9.3-17.3); White Blood Count 7.9 T/CUMM (4-12)
[2020-10-08 05:01] LABS: Band Neutrophils 3 % (0-10); Eosinophils 1 % (0-10); Hypochromasia 2+; Lymphocytes 7 % (20-55); Microcytosis 1+; Nucleated Red Blood Cells 2 (0-5); Platelet Estimate Decreased; Segmented Neutrophils 85 % (50-85); Total Cells Counted 100
[2020-10-08 05:25] LABS: Albumin 1.8 G/DL (3.4-5.0); Bilirubin,Direct 1.34 MG/DL (0.0-0.20); Bilirubin,Indirect 1.2 MG/DL (0.0-1.0); Bilirubin,Total 2.5 MG/DL (0.2-1.0); Calcium 8.3 MG/DL (8.5-10.1); Osmolality,Calculated 273.5 MOS/KG (273-304); Potassium 3.5 MMOL/L (3.5-5.1); Total Protein 5.5 G/DL (5.0-7.5)
[2020-10-08] MEDS: PANTOPRAZOLE 40 MG TABLET PO SCH (09:14)
[2020-10-08] MEDS ORDERED: FUROSEMIDE 40 MG/4 ML VIAL IV ONE (11:25)
[2020-10-08] MEDS ORDERED: ALBUTEROL/IPRATROPIUM 3 ML NEB RESP TX PRN (11:26)
[2020-10-08] MEDS: INSULIN LISPRO 100 UNIT/ML SUBCUT SCH (17:21)
[2020-10-08] MEDS: FUROSEMIDE 40 MG/4 ML VIAL IV SCH (17:22)
[2020-10-09] MEDS: ZALEPLON 5 MG CAPSULE PO PRN ×2 (00:38→23:12)
[2020-10-09 03:47] LABS: Basophils % 0.1 % (0.0-0.8); Eosinophils % 0.1 % (0.00-10.9); Hemoglobin 7.4 GM/DL (14.0-18.0); Immature Granulocytes % 7.3 %; Immature Granulocytes Absolute 0.56 #; Lymphocytes # 0.7 10*3/uL (1.4-4.0); Lymphocytes % 9.2 % (21.2-54.2); Mean Corpuscular HGB Conc 29.6 GM/DL (32-36); Mean Corpuscular Volume 101.2 FL (87-102); Mean Platelet Volume 11.3 FL (9.6-12.0); Monocytes % 7.8 % (1.7-12.7); NRBC # 0.15 10*3/uL; Neutrophils % 75.5 % (38.7-73.9); Red Blood Count 2.47 MC/CUMM (3.8-5.5); Red Cell Distribution Width 22.7 % (9.3-17.3); White Blood Count 7.7 T/CUMM (4-12)
[2020-10-09 03:59] LABS: Platelet Count 58 T/CUMM (130-400)
[2020-10-09 04:09] LABS: Calcium 8.3 MG/DL (8.5-10.1); Osmolality,Calculated 275.5 MOS/KG (273-304); Potassium 3.5 MMOL/L (3.5-5.1)
[2020-10-09 04:15] LABS: Band Neutrophils 2 % (0-10); Hypochromasia 1+; Lymphocytes 14 % (20-55); Microcytosis 1+; Nucleated Red Blood Cells 2 (0-5); Ovalocytes Slight; Platelet Estimate Decreased; Segmented Neutrophils 79 % (50-85); Total Cells Counted 100
[2020-10-09] MEDS: INSULIN LISPRO 100 UNIT/ML SUBCUT SCH ×2 (08:35→18:02)
[2020-10-09] MEDS: PANTOPRAZOLE 40 MG TABLET PO SCH (08:37)
[2020-10-09] MEDS: FUROSEMIDE 40 MG/4 ML VIAL IV SCH ×2 (08:38→16:59)
[2020-10-10] MEDS: INSULIN LISPRO 100 UNIT/ML SUBCUT SCH (07:24)
[2020-10-10] MEDS: PANTOPRAZOLE 40 MG TABLET PO SCH (08:58)
[2020-10-10] MEDS: FUROSEMIDE 40 MG/4 ML VIAL IV SCH (09:00)
[2020-10-10] MEDS ORDERED: POLYETHYLENE GLYCOL POWDER 17 GM PACK PO SCH (09:00)
[2020-10-10 09:02] LABS: Basophils % 0.1 % (0.0-0.8); Eosinophils % 0.2 % (0.00-10.9); Hematocrit 24.9 VOL% (42.0-52.0); Hemoglobin 7.6 GM/DL (14.0-18.0); Immature Granulocytes % 7.2 %; Immature Granulocytes Absolute 0.66 #; Lymphocytes # 0.8 10*3/uL (1.4-4.0); Lymphocytes % 8.6 % (21.2-54.2); Mean Corpuscular HGB Conc 30.5 GM/DL (32-36); Mean Corpuscular Volume 100.8 FL (87-102); Monocytes % 8.4 % (1.7-12.7); NRBC # 0.25 10*3/uL; Neutrophils % 75.5 % (38.7-73.9); Platelet Count 54 T/CUMM (130-400); Red Blood Count 2.47 MC/CUMM (3.8-5.5); Red Cell Distribution Width 22.8 % (9.3-17.3); White Blood Count 9.2 T/CUMM (4-12)
[2020-10-10 09:20] LABS: Band Neutrophils 1 % (0-10); Hypochromasia 2+; Lymphocytes 10 % (20-55); Microcytosis 1+; Nucleated Red Blood Cells 1 (0-5); Ovalocytes Slight; Platelet Estimate Decreased; Segmented Neutrophils 81 % (50-85); Total Cells Counted 100
[2020-10-10 09:22] LABS: Calcium 8.3 MG/DL (8.5-10.1); Osmolality,Calculated 274.5 MOS/KG (273-304); Potassium 3.4 MMOL/L (3.5-5.1)
[2020-10-10] MEDS ORDERED: POTASSIUM CHLORIDE 20 MEQ TABLET PO ONE (11:43)
[2020-10-10 11:54] VITALS: BP 125/65
== END 2020-10-10 14:05 | disposition hospice, home (50) ==
LOC: EDUNIT# → EDBD → N.ED 19:42 → N.EDINP 19:42 → SUATTDRO 10-07 00:42 → N.EDINP 10-07 02:48 → N.4E 10-07 03:00
PROVIDERS: ADMIT Internal Medicine; ATTEND Internal Medicine